=== PATIENT | male | born 1955 | race Caucasian/White ===

== ENCOUNTER → 2021-01-29 15:12 | Outpatient (CLI) | payer OTHER, SELFPAY ==
--- NOTE | 2021-01-29 15:15 | DI.MRI.S_ITS ---
PROCEDURE: MR LUMBAR SPINE WO CON INDICATIONS: Spinal stenosis, lumbar region with neurogenic cla TECHNIQUE: Noncontrast sagittal T1 spin echo and T2 fast echo, sagittal STIR, axial T1 and T2 fast spin echo through the lumbar spine. In cases with scoliosis, additional coronal T2 fast spin echo may be performed. COMPARISON: [facility] [place], CR, XR LUMBAR SPINE WITH OLBIQUES PLUS FLEXION EXTENSION, 12/25/2020, 8:53. FINDINGS: Image quality: This examination is limited by involuntary motion artifact. Alignment and Curvature: There is grade 1 L5-S1 anterolisthesis, with associated L5 pars defects. Bone Marrow: Marrow is of normal overall signal. No acute vertebral body compression fractures. Spinal Cord: Conus medullaris terminates at the T12-L1 level. Visualized cord demonstrates normal signal and size. Paraspinous Soft Tissues: No paravertebral masses. T11-T12: Moderate loss of disc height is seen. Prominent bridging anterior osteophytes are seen. Moderate generalized disc bulge is seen. Moderate bilateral neural foraminal narrowing is seen. Mild central canal narrowing is seen. T12-L1: The disc height and disc signal are relatively well preserved. Moderate disc bulge is seen, which is eccentric to the left. Mild to moderate facet hypertrophy is seen. There is moderate right-sided and no significant left-sided neural foraminal narrowing seen. No central canal narrowing is seen. L1-L2: The disc height and disk signal are well-preserved. Bridging endplate osteophytes are seen. Mild to moderate disc bulge is seen. Mild to moderate facet hypertrophy is seen at this level. Moderate bilateral neural foraminal narrowing is seen. Mild to moderate central canal narrowing is seen. L2-L3: The disc height and disc signal are relatively well preserved. Moderate disc bulge is seen, which is eccentric to the right. Mild to moderate facet hypertrophy is seen. There is at least moderate left-sided and moderate right-sided neural foraminal narrowing seen. Moderate central canal narrowing is seen. L3-L4: The disc height and disc signal are relatively well preserved. Moderate disc bulge is seen, with a central disc protrusion. Mild to moderate facet hypertrophy can be seen. There is at least moderate bilateral neural foraminal narrowing seen, left worse than right. There is a degree of compression seen upon the exiting nerve roots. Moderate central canal narrowing is seen. L4-L5: Moderate loss of disc height is seen. Loss of disc signal is seen. Moderate disc bulge is seen, with a central/right mild disc extrusion, with inferior migration of the disc material. Moderate facet joint hypertrophy is seen. There is moderate to severe bilateral neural foraminal narrowing seen, right worse than left. There is a degree of compression seen upon the exiting nerve roots. Mild central canal narrowing is seen. L5-S1: Kazr-nl-ignhxzgi loss of disc height and disc signal can be seen. Moderate disc bulge is seen, with disc uncovering. Moderate facet hypertrophy is seen. There is severe bilateral neural foraminal narrowing seen. There is a degree of compression seen upon the exiting nerve roots. Mild central canal narrowing is seen. IMPRESSION: Lumbar spine degenerative changes are seen, which are most prominent inferiorly and overall worst at the L5-S1 level, where there is grade 1 anterolisthesis, with associated bilateral pars defects. Severe bilateral neural foraminal narrowing can be seen at this level, with associated exiting L5 nerve root compression. Dictated by: Tenzin Heredia M.D. on 01/29/2021 at 15:25 Approved by: Tenzin Heredia M.D. on 01/29/2021 at 15:42
== END ==
PROVIDERS: Referring Provider Internal Medicine Gastroenterology; Visit Provider Internal Medicine Gastroenterology
DX: M48.062 Spinal stenosis, lumbar region with neurogenic claudication (principal); M47.816 Spondylosis without myelopathy or radiculopathy, lumbar region; M47.817 Spondylosis without myelopathy or radiculopathy, lumbosacral region; M48.07 Spinal stenosis, lumbosacral region; M43.17 Spondylolisthesis, lumbosacral region
CPT/HCPCS: 72148

== ENCOUNTER → 2022-05-22 09:21 | Outpatient (CLI) | payer MEDICARE, OTHER, SELFPAY ==
[2022-05-22 10:50] LABS: COVID19 -Nasal RAPID Negative (Negative)
== END ==
PROVIDERS: PCP Family Medicine; Visit Provider Surgery
DX: Z20.822 Contact with and (suspected) exposure to COVID-19 (principal); Z01.812 Encounter for preprocedural laboratory examination
CPT/HCPCS: 87635; C9803

== ENCOUNTER 2022-05-23 11:32 | Day surgery (SDC) | payer MEDICARE, OTHER, SELFPAY ==
[2022-05-23] VITALS (7 sets, daily range): BP systolic 72–136; BP diastolic 48–73; PULSE 61–83; RESP 16–23; TEMP 36.4–36.6; O2SAT 92–97; BMI 36.5
--- NOTE | 2022-05-23 | PATH_ITS ---
[facility] Accession Number: [id number] No. of containers..05 Tissue . 01 Material submitted: . PART A: colon - ASCENDING COLON POLYP X2 PART B: colon - TRANSVERSE COLON POLYP PART C: colon - DESCENDING COLON POLYP PART D: sigmoid colon - SIGMOID COLON POLYP PART E: rectum - RECTAL POLYP . 01 Diagnosis: A. Ascending Colon, Polyp x2, Biopsy: Tubular adenoma in 2 of 3 fragments. . B. Transverse Colon, Polyp, Biopsy: Tubular adenoma. . C. Descending Colon, Polyp, Biopsy: Tubular adenoma. . D. Sigmoid Colon, Polyp, Biopsy: Tubular adenomas. . E. Rectum, Polyp, Biopsy: Hyperplastic polyp. [facility] 05/28/2022 1124 Local . 01 Electronically signed: . Aria Solorio MD, Pathologist NPI- [id number] . 01 Gross description: . Part A: ASCENDING COLON POLYP X2: Received in formalin are 3 fragment(s) of chicas, soft tissue measuring 0.5 x 0.5 x 0.3 cm to 0.8 x 0.5 x 0.3 cm submitted entirely in 1 cassette(s) Part B: TRANSVERSE COLON POLYP: Received in formalin is 1 fragment(s) of chicas, soft tissue measuring 0.8 x 0.4 x 0.3 cm submitted entirely in 1 cassette(s) Part C: DESCENDING COLON POLYP: Received in formalin are 2 fragment(s) of chicas, soft tissue measuring 0.2 x 0.2 x 0.1 cm to 0.6 x 0.5 x 0.3 cm submitted entirely in 1 cassette(s) Part D: SIGMOID COLON POLYP: Received in formalin is 2 fragment(s) of chicas, soft tissue measuring 0.5 x 0.5 x 0.3 cm to 0.6 x 0.5 x 0.4 cm submitted entirely in 1 cassette(s) Part E: RECTAL POLYP: Received in formalin is 1 fragment(s) of chicas, soft tissue measuring 0.5 x 0.4 x 0.3 cm submitted entirely in 1 cassette(s) /PETER 05/24/2022 2352 Local . 01 Pathologist provided ICD-10: D12.2, D12.3, D12.4, D12.5, K62.1 . 01 CPT . 682095, 682527, 382049, 389252, 862833 Specimen Comment: A courtesy copy of this report has been sent to [phone] Performed at: 01 [facility] [address] [place] [address], [place], [place] [id number] MD Zhao Cartagena MD Phone: [phone]
[2022-05-23] MEDS: LACTATED RINGERS 1,000 ML 42 ML IV (11:51)
--- NOTE | 2022-05-23 12:27 | PM.HP.1 ---
History of Present Illness History of Present Illness Date Patient Seen: 05/23/22 Time Patient Seen: 12:27 Chief complaint: SDC Narrative: Mitch is a 67-year-old man who is here for colonoscopy. He had 1 here about 11 years ago that was clean. He has no known family history of colon cancer. Patient History Family & Social History Social History: household members spouse Tobacco & Substance use: Tobacco type cigarettes Smoking Status Never smoker alcohol intake current alcohol intake frequency 0-2 drinks per day Substance Use Type does not use Meds Home Medications and Allergies Home Medications Medication Instructions Recorded Confirmed Type atorvastatin 20 mg tablet 20 mg PO DAILY 05/23/22 05/23/22 History lisinopril 20 20 - 25 tab PO DAILY DM 05/23/22 05/23/22 History mg-hydrochlorothiazide 25 mg tablet metformin 500 mg tablet 500 mg PO 3XD 05/23/22 05/23/22 History sildenafil 25 mg tablet 25 mg PO DAILY PRN Sexual Activity 05/23/22 05/23/22 History tamsulosin 0.4 mg capsule 0.4 mg PO DAILY 05/23/22 05/23/22 History verapamil 240 mg tablet,extended 240 mg PO DAILY 05/23/22 05/23/22 History release zolpidem 10 mg tablet 10 mg PO 3XD 05/23/22 05/23/22 History Allergies Allergy/AdvReac Type Severity Reaction Status Date / Time No Known Drug Allergies Allergy Verified 05/23/22 11:53 Exam Vital Signs (past 8 hours): - 05/23/22 12:02 Temperature 97.5 F L Pulse Rate 83 Respiratory Rate 17 Blood Pressure 136/73 Pulse Oximetry 97 Oxygen Delivery Method Room Air Oxygen Delivery Method Room Air Const General: No acute distress Assessment & Plan Assessment and plan (1) Colon cancer screening: Status: Acute Plan Risks and benefits of colonoscopy reviewed and he would like to proceed. Time Spent With Patient Critical Care time: I spent a total of [] minutes of critical care time on this patient's care today; this time is exclusive of procedural time.
--- NOTE | 2022-05-23 14:02 | PM.OP.COLON ---
Operative Date/Time/Diagnoses Date of procedure: 05/23/22 Time of procedure: 14:02 Pre-op diagnosis: Colon cancer screening Post-op diagnosis: same Procedure & Clinicians Study performed: Colonoscopy Same procedure as scheduled: Yes Surgeon: Mitch Hanna Procedure Notes Procedure in detail: Surgeon: Mitch Hanna MD Anesthesia: Dr. Chowdhury Procedure: The patient was brought to the endoscopy suite, placed in left lateral decubitus position. The patient was connected to monitoring devices. A time-out was performed. Sedation was administered. Once the patient was adequately sedated, a digital rectal exam was performed and was normal. The scope was then inserted and advanced to the cecum where the appendiceal orifice was identified and photographed. The scope was then slowly withdrawn over greater than 6 minutes. The mucosa was thoroughly inspected. There were 3 polyps in the ascending colon all less than 1 cm removed with cold snare and sent together. There was 1 5 mm polyp in the transverse colon removed with a cold snare. There was 1 5 mm polyp in the descending colon removed with a cold snare. There was 1 5 mm polyp in the sigmoid colon removed with a cold snare. There was a 3 mm polyp in the rectum removed with cold snare. The scope was retroflexed in the rectum. No other abnormalities were seen. The scope was straightened and removed. The patient was awakened and brought to recovery. Scope withdrawal time: 20 minutes Sedation time: 27 minutes EBL: 5 mL Findings: 3 polyps in the ascending colon, 1 polyp in the transverse colon, 1 polyp in the descending colon, 1 polyp in the sigmoid colon and 1 rectal polyp all less than 1 cm Post-procedure Disposition: PACU
== END 2022-05-23 14:54 | disposition home or self-care (01) ==
PROVIDERS: PCP Family Medicine; Referring Provider Surgery; Visit Provider Surgery
PROC: 0DJD8ZZ Inspection of Lower Intestinal Tract, Via Natural or Artificial Opening Endoscopic (ICD-10-PCS; CPT 45378; principal; 2022-05-23 11:45)
DX: Z12.11 Encounter for screening for malignant neoplasm of colon (principal); D12.2 Benign neoplasm of ascending colon; D12.3 Benign neoplasm of transverse colon; D12.4 Benign neoplasm of descending colon; D12.5 Benign neoplasm of sigmoid colon; K62.1 Rectal polyp
CPT/HCPCS: 45385; J2704; J3010

== ENCOUNTER → 2022-05-27 09:39 | Outpatient (CLI) | payer MEDICARE, OTHER, SELFPAY ==
--- NOTE | 2022-05-27 | DI.US.S_ITS ---
PROCEDURE: US ABD AORTA ANEURYSM SCREEN INDICATIONS: SCREENING FOR CARDIOVASCULAR DISORDER TECHNIQUE: Real-time scanning was performed of the aorta and proximal common iliac arteries, with image documentation. COMPARISON: None. FINDINGS: Aorta: Abdominal aorta is normal in caliber throughout its length. Proximal aorta measures 1.3 cm in AP diameter. Mid aorta measures 1.1 cm and distal aorta measures 1.0 cm. No visible periaortic fluid. Iliacs: Proximal common iliac arteries are normal in caliber. Each measures 1.0 cm in greatest diameter. IMPRESSION: 1. No evidence of aortic or proximal common iliac artery aneurysm. Dictated by: Nina Patel M.D. on 05/27/2022 at 10:01 Approved by: Nina Patel M.D. on 05/27/2022 at 10:02
== END ==
PROVIDERS: PCP Family Medicine; Referring Provider Family Medicine; Visit Provider Family Medicine
DX: Z13.6 Encounter for screening for cardiovascular disorders (principal)
CPT/HCPCS: 76706

== ENCOUNTER 2022-06-14 16:27 | Emergency (ER) | payer MEDICARE, OTHER, SELFPAY ==
[2022-06-14] VITALS (10 sets, daily range): BP systolic 124–169; BP diastolic 64–93; PULSE 77–94; RESP 12–24; TEMP 37; O2SAT 91–96; BMI 38.7
--- NOTE | 2022-06-14 16:46 | DI.RAD.S_ITS ---
PROCEDURE: XR CHEST 1V INDICATIONS: chest pain TECHNIQUE: One view of the chest was acquired. COMPARISON: [facility], , CHEST 2 VIEW, 06/30/2008, 0:38. FINDINGS: Surgical changes and devices: None. Lungs and pleura: Lungs are clear. No pleural effusions or pneumothorax. Mediastinum: Mediastinal contours appear normal. Heart size is is enlarged. Bones and chest wall: No suspicious bony lesions. Overlying soft tissues appear unremarkable. IMPRESSION: No acute cardiopulmonary pathology. Dictated by: Duane Cai M.D. on 06/14/2022 at 17:04 Approved by: Duane Cai M.D. on 06/14/2022 at 17:04
--- NOTE | 2022-06-14 16:46 | PC.NURSE ---
patient reports he has been more tired than normal
--- NOTE | 2022-06-14 16:47 | DI.CT.S_ITS ---
PROCEDURE: CT HEAD/BRAIN WO CON INDICATIONS: altered mental status, ETOH TECHNIQUE: Noncontrast 4.5 mm thick angled axial sections acquired from the foramen magnum to the vertex, with coronal and sagittal reformats. For radiation dose reduction, the following was used: automated exposure control, adjustment of mA and/or kV according to patient size. COMPARISON: None. FINDINGS: Image quality: Excellent. CSF spaces: Basal cisterns are patent. No extra-axial fluid collections. The ventricles are symmetric in size and shape. Brain: No intracranial bleeds or masses. There is cerebral volume loss for age, with resultant ventricular and sulcal prominence. There are periventricular and deep white matter chronic small vessel ischemic changes. There is intracranial internal carotid artery atherosclerosis. Skull and face: Calvarium and visualized facial bones appear intact, without suspicious lesions. Sinuses: Visualized sinuses and mastoids are clear. IMPRESSION: 1. No CT evidence of acute intracranial abnormalities. 2. Age related volume loss and mild white matter chronic small vessel ischemic changes. Dictated by: Duane Cai M.D. on 06/14/2022 at 17:04 Approved by: Duane Cai M.D. on 06/14/2022 at 17:05
--- NOTE | 2022-06-14 16:58 | PC.NURSE ---
Patient reports patient normally drinks about 5-6 drinks of vodka a day throughout the whole day. Typically starts in the morning. Patient has had some word finding and repetition over the last couple days. Patient has also appeared to have some swallowing difficulties with first few drinks over the last couple days which is new. Patient has been more tired than normal.
[2022-06-14 17:02] LABS: Add Manual Diff / Slide Review NO; Basophils Absolute Auto 100 /uL (0-100); Basophils Percent Auto 1.1 % (0-2); Eosinophils Absolute Auto 400 /uL (0-450); Eosinophils Percent Auto 4.3 % (2-4); Hematocrit 38.7 % (41-53); INR 1.1 (0.9-1.3); Lymphocytes Absolute Auto 2800 /uL (1100-4500); Lymphocytes Percent Auto 31.3 % (25-40); Mean Corpuscular HGB Conc 33.5 % (30-36); Mean Corpuscular Hemoglobin 33.9 PG (26-34); Mean Corpuscular Volume 101.1 fL (80-100); Monocytes Absolute Auto 800 /uL (0-900); Monocytes Percent Auto 9.2 % (3-14); Neutrophils Absolute Auto 4900 /uL (1500-7000); Neutrophils Percent Auto 54.1 % (50-75); Platelet Count 232 X10^3/uL (150-400); Prothrombin Time 12.9 SECONDS (10.1-12.7); Red Blood Cell Count 3.83 X10^6/uL (4.5-5.9); Red Cell Distribution Width 14.4 % (11.6-14.8)
[2022-06-14 17:05] LABS: Ethanol (ETOH) 287 mg/dL; PTT Partial Thromboplastin Tim 37 SECONDS (26-36)
[2022-06-14 17:06] LABS: Alanine Aminotransferase 74 IU/L (<50); Albumin 4.6 g/dL (3.5-5.0); Albumin Globulin Ratio 1.3 (1.0-2.8); Alkaline Phosphatase 78 U/L (38-126); Aspartate Aminotransferase 136 IU/L (17-59); BUN Creatinine Ratio 10.4 (6-22); Bilirubin Total 0.9 mg/dL (0.2-1.3); Blood Urea Nitrogen 12 mg/dL (9-20); Calcium 9.1 mg/dL (8.4-10.2); Carbon Dioxide 23 mmol/L (22-32); Chloride 94 mmol/L (98-107); Creatine Kinase 324 U/L (55-170); Estimated Glomerular Filt Rate > 60 mL/min (>60); Globulin 3.6 g/dL (1.7-4.1); Glucose 184 mg/dL (80-110); HEMOLYSIS < 15 (0-50); Lipase 244 U/L (23-300); Magnesium 1.6 mg/dL (1.6-2.3); Potassium 3.7 mmol/L (3.4-5.1); Sodium 138 mmol/L (137-145); Total Protein 8.2 g/dL (6.3-8.2)
[2022-06-14 17:17] LABS: Troponin I < 0.012 ng/mL (0.01-0.034)
[2022-06-14 17:21] LABS: CKMB % Relative Index 0.8 % (1.5-5.0); Creatine Kinase MB 2.49 ng/mL (<2.37)
--- NOTE | 2022-06-14 17:22 | DI.CT.S_ITS ---
PROCEDURE: CT ANGIO HEAD AND NECK INDICATIONS: altered per family TECHNIQUE: Noncontrast images were performed earlier in the day and not repeated. After the administration of intravenous contrast, 1 mm thick sections acquired from the aortic arch through the [place]. Post-contrast 4.5 mm thick sections then re-acquired from the foramen magnum to the vertex. 3-dimensional xygszlm-ooexxxqsr-ygfmvdiwmj (MIP) and/or volume rendering reformats were acquired of the central intracranial vasculature and neck separately. For radiation dose reduction, the following was used: automated exposure control, adjustment of mA and/or kV according to patient size. COMPARISON: [facility], CT, CT HEAD/BRAIN WO CON, 06/14/2022, 16:52. FINDINGS: Image quality: Excellent. BRAIN: CSF spaces: Ventricles are normal in size and shape. Basal cisterns are patent. No extra-axial fluid collections. Brain: No midline shift. No intracranial bleeds or masses. Pillai-white matter interface appears intact. Skull and face: Calvarium and facial bones appear intact, without suspicious lesions. Orbits appear normal. Sinuses: Sinuses and mastoids are clear. HEAD CT ANGIOGRAPHY: Anterior circulation: Intracranial internal carotid arteries are normal in size and flow. The flow within the paired anterior cerebral arteries is normal and symmetric. The flow within the middle cerebral arteries is normal and symmetric. The anterior communicating artery is seen. No aneurysms are seen. Posterior circulation: The left V4 segment is within normal limits. The right V4 segment largely terminates in the right posterior inferior cerebellar artery. There is a normal appearing basilar artery. Flow within the posterior cerebral arteries is normal and symmetric. No aneurysms are seen. NECK CT ANGIOGRAPHY: Carotid system: The great vessels demonstrate a conventional anatomy as they arise from the aortic arch. The origins of the common carotid arteries appear patent. The common carotid arteries demonstrate normal caliber and courses. The bifurcation regions demonstrate atherosclerotic calcification, yet without a hemodynamically significant stenosis. The more distal internal carotid arteries demonstrate normal caliber, yet they are tortuous. Posterior circulation: The origins of the vertebral arteries both appear widely patent. The more superior extracranial portions of both vertebral arteries also demonstrate normal courses and calibers. The left vertebral artery is dominant to the right. Soft tissues: Visualized neck soft tissues demonstrate no suspicious abnormalities. The esophagus is abnormal and patulous, with a thickened wall. There is abnormal fluid density material seen within the esophagus. Bones: No suspicious bony lesions. Visualized cervical spine appears normally aligned. Moderate cervical spine degenerative change can be seen. IMPRESSION: No significant intracranial arterial abnormality is seen. Within the arteries of the neck, no hemodynamically significant stenosis can be seen. If there is strong clinical suspicion for an acute stroke, please consider a brain MRI for further evaluation, as it is more sensitive (assuming that there is no contraindication to MRI). The esophagus is abnormal, with a patulous appearance and a thickened wall and apparent refluxed material. Please correlate with known patient history. Additional findings: Tortuous internal carotid arteries Moderate cervical spine degenerative change Any quantitative measurements of stenosis were performed using NASCET criteria. Dictated by: Tenzin Heredia M.D. on 06/14/2022 at 17:20 Approved by: Tenzin Heredia M.D. on 06/14/2022 at 17:23
[2022-06-14 17:49] LABS: Appearance Urine UA CLEAR; Bilirubin Urine UA NEGATIVE (NEGATIVE); Color Urine UA YELLOW; Glucose Urine UA 3+ g/dL (Negative); Ketones Urine UA NEGATIVE (NEGATIVE); Leukocyte Esterase Urine UA NEGATIVE (NEGATIVE); Nitrite Urine UA NEGATIVE (Negative); Occult Blood Urine UA NEGATIVE (Negative); Protein Urine UA NEGATIVE (Negative); Specific Gravity Urine UA <=1.005 (1.000-1.035); Urobilinogen Urine UA 0.2 E.U./dL (0.2)
[2022-06-14 17:59] LABS: UR Morphine/Opiate cutoff 300 Negative (Negative); Ur Creatinine Normal (Normal); Ur Specific Gravity Normal (Normal); Urine Amphetamines Negative (Negative); Urine Barbiturates Negative (Negative); Urine Benzodiazepines Negative (Negative); Urine Cocaine Negative (Negative); Urine MDMA Negative (Negative); Urine Methadone Negative (Negative); Urine Methamphetamines Negative (Negative); Urine Oxycodone Negative (Negative); Urine Phencyclidine Negative (Negative); Urine Tetrahydrocannabinol Negative (Negative); Urine Tricyclic Antidepressant Negative (Negative); Urine pH Normal (Normal)
[2022-06-14 18:03] LABS: Amorphous Sediment Urine 1+; Bacteria Urine None Seen; Culture Indicated Urine Cult Not Indicated; RBC Urine None Seen (0-5/HPF); Squamous Epithelial Cell Urine 0-1 /HPF (0-5/HPF); WBC Urine 0-1/HPF (0-5/HPF)
--- NOTE | 2022-06-14 19:21 | ED_ITS ---
HPI - Altered Mental Status General Chief Complaint: Altered Mental Status Stated Complaint: confused / found down Time Seen by Provider: 06/14/22 16:49 Source: EMS Mode of arrival: EMS History of Present Illness HPI narrative: Patient is a 67-year-old male history of hypertension hyperlipidemia alcohol abuse diabetes presenting today after syncopal episode. He reports that he was sleeping on the couch she stood up and passed out. He is unsure how long he laid there how long he passed out for but this does happened to him on occasion when he stands up too quickly. was outside came in and found him on the floor and just extremely weak unable to get up off the ground by himself. This is very out of the norm for him. He was diffusely weak not unilateral she said that his speech was slow but clear and making sense. EMS arrived Related Data Home Medications Medication Instructions Recorded Confirmed atorvastatin 20 mg tablet 20 mg PO DAILY 05/23/22 05/23/22 lisinopril 20 20 - 25 tab PO DAILY DM 05/23/22 05/23/22 mg-hydrochlorothiazide 25 mg tablet metformin 500 mg tablet 500 mg PO 3XD 05/23/22 05/23/22 sildenafil 25 mg tablet 25 mg PO DAILY PRN Sexual Activity 05/23/22 05/23/22 tamsulosin 0.4 mg capsule 0.4 mg PO DAILY 05/23/22 05/23/22 verapamil 240 mg tablet,extended 240 mg PO DAILY 05/23/22 05/23/22 release zolpidem 10 mg tablet 10 mg PO 3XD 05/23/22 05/23/22 Allergies Allergy/AdvReac Type Severity Reaction Status Date / Time No Known Drug Allergies Allergy Verified 06/14/22 16:41 Review of Systems Review of Systems ROS Unobtainable: All systems reviewed & are unremarkable except as noted in HPI and below Patient History Social History household members: spouse Smoking Status: Former smoker alcohol intake: current Smoking Status: Former smoker alcohol intake frequency: 0-2 drinks per day Alcohol type: hard liquor Substance Use Type: does not use Exam Initial Vital Signs Initial Vital Signs: Vital Signs Temperature 98.6 F 06/14/22 16:31 Pulse Rate 81 06/14/22 16:31 Respiratory Rate 20 02/10/23 16:31 Blood Pressure 169/93 H 06/14/22 16:31 Pulse Oximetry 96 06/14/22 16:31 Oxygen Delivery Method 06/14/22 16:31 GENERAL: Alert pleasant 67-year-old male and in no acute distress. HEENT: Head atraumatic,EOMI, pupils reactive, face symmetric, moist mucous membranes CARDIOVASCULAR: Regular rate and rhythm without murmurs, rubs or gallops. RESPIRATORY: Breath sounds equal bilaterally, no wheezes rales or rhonchi. ABDOMEN: Soft, nontender. Normoactive bowel sounds all 4 quadrants. No guarding or rebound. EXTREMITIES: Normal range of motion, no clubbing or edema. Neurovascularly intact NEUROLOGICAL: Alert and oriented x4.Normal gait and speech. Cranial nerves II through XII grossly intact. Good [id number], good [id number], strength equal bilaterally, no dysarthria or aphasia, sensation in tact to soft touch bilaterally, no visual changes, no facial droop SKIN: Warm, dry, no laceration, no petechiae, no rashes or lesions. Scores NIH Stroke Scale Level of Conciousness: Alert, keenly responsive Ask month/age: Answers both questions correctly. Open/close eyes, close hand: Performs both tasks correctly Best gaze horizontal: Normal Visual islas: No visual loss Facial palsy: Normal symetrical movement Left arm drift: No drift for full 10 sec Right arm drift: No drift for full 10 sec Left leg drift: No drift for full 5 sec Right leg drift: No drift for full 5 sec Limb ataxia: Absent Sensory on face/arms/legs: Normal, no sensory loss Best language: No aphasia, normal Dysarthria: Normal Extinction or inattention: No abnormality Total NIH Stroke scale score: 0 Course Orders Ordered: ED Orders 06/14/22 16:35 Complete Blood Count AUTO DIFF Stat Comprehensive Metabolic Panel Stat Ethanol (ETOH) Stat Lipase Stat Magnesium Stat Partial Thromboplastin Time Stat Prothrombin Time INR Stat Troponin & CK Cardiac Panel Stat 06/14/22 16:46 XR chest 1V Stat 06/14/22 16:47 CT head/brain wo con Stat 06/14/22 17:22 CT angio head and neck Stat 06/14/22 17:46 Urinalysis and Microscopic Stat Urine Drug Screen, Rapid Stat 06/14/22 17:59 EKG-12 Lead Stat Discontinued Medications Aspirin (Aspirin 81 Mg Chew Tab) 324 mg PO NOW ONE Stop: 06/14/22 16:47 Last Admin: 06/14/22 18:15 Dose: Not Given Documented By: [facility] Vital Signs Vital signs: Vital Signs - 8 hr 06/14/22 16:31 06/14/22 16:32 06/14/22 17:04 Temperature 98.6 F Pulse Rate 81 83 81 Respiratory Rate 20 17 Blood Pressure 169/93 H Pulse Oximetry 96 96 95 Oxygen Delivery Method Room Air 06/14/22 17:30 06/14/22 18:00 06/14/22 18:16 Temperature Pulse Rate 94 H 79 Respiratory Rate Blood Pressure 126/75 Pulse Oximetry 95 Oxygen Delivery Method 06/14/22 18:16 06/14/22 18:30 06/14/22 18:30 Temperature Pulse Rate 82 80 Respiratory Rate 24 Blood Pressure 127/76 Pulse Oximetry 94 94 Oxygen Delivery Method 06/14/22 19:00 06/14/22 19:00 06/14/22 19:30 Temperature Pulse Rate 79 Respiratory Rate 22 Blood Pressure 124/75 130/77 Pulse Oximetry 91 Oxygen Delivery Method 06/14/22 19:30 06/14/22 20:00 06/14/22 20:00 Temperature Pulse Rate 77 79 Respiratory Rate 24 12 Blood Pressure 128/64 Pulse Oximetry 95 93 Oxygen Delivery Method MDM - Altered Mental Status Lab Data 06/14/22 16:35 06/14/22 16:35 Labs: Lab Results 06/14/22 06/14/22 06/14/22 Range/Units 16:35 16:35 16:35 WBC 9.0 (4.5-11.0) X10^3/uL RBC 3.83 L (4.5-5.9) X10^6/uL Hgb 13.0 L (13.5-17.5) g/dL Hct 38.7 L (41-53) % MCV 101.1 H (80-100) fL MCH 33.9 (26-34) PG MCHC 33.5 (30-36) % RDW 14.4 (11.6-14.8) % Plt Count 232 (150-400) X10^3/uL Neut % (Auto) 54.1 (50-75) % Lymph % (Auto) 31.3 (25-40) % [place] % (Auto) 9.2 (3-14) % Eos % (Auto) 4.3 H (2-4) % Baso % (Auto) 1.1 (0-2) % Neut # (Auto) 4900 (7729-5725) /uL Lymph # (Auto) 2800 (4531-3781) /uL [place] # (Auto) 800 (0-900) /uL Eos # (Auto) 400 (0-450) /uL Baso # (Auto) 100 (0-100) /uL PT 12.9 H (10.1-12.7) SECONDS INR 1.1 (0.9-1.3) APTT 37 H (26-36) SECONDS Sodium 138 (137-145) mmol/L Potassium 3.7 (3.4-5.1) mmol/L Chloride 94 L (98-107) mmol/L Carbon Dioxide 23 (22-32) mmol/L BUN 12 (9-20) mg/dL Creatinine 1.15 (0.66-1.25) mg/dL Estimated GFR > 60 (>60) mL/min BUN/Creatinine Ratio 10.4 (6-22) Glucose 184 H (80-110) mg/dL Calcium 9.1 (8.4-10.2) mg/dL Magnesium 1.6 (1.6-2.3) mg/dL Total Bilirubin 0.9 (0.2-1.3) mg/dL AST 136 H (17-59) IU/L ALT 74 H (<50) IU/L Alkaline Phosphatase 78 (38-126) U/L Total Creatine Kinase 324 H (55-170) U/L CK-MB (CK-2) 2.49 H (<2.37) ng/mL CK-MB (CK-2) Rel Index 0.8 L (1.5-5.0) % Troponin I < 0.012 (0.01-0.034) ng/mL Total Protein 8.2 (6.3-8.2) g/dL Albumin 4.6 (3.5-5.0) g/dL Globulin 3.6 (1.7-4.1) g/dL Albumin/Globulin Ratio 1.3 (1.0-2.8) Lipase 244 (23-300) U/L Urine Color Urine Appearance Urine pH (4.5-8.0) Ur Specific [place] (1.000-1.035) Urine Protein (Negative) Urine Glucose (UA) (Negative) g/dL Urine Ketones (NEGATIVE) Urine Occult Blood (Negative) Urine Nitrate (Negative) Urine Bilirubin (NEGATIVE) Urine Urobilinogen (0.2) E.U./dL Ur Leukocyte Esterase (NEGATIVE) Urine RBC (0-5/HPF) Urine WBC (0-5/HPF) Ur Squamous Epith Cells (0-5/HPF) Amorphous Sediment Urine Bacteria (None) Ur Culture Indicated? U Opiates 300ng/mL cut (Negative) Ur Oxycodone Screen (Negative) Urine Methadone Screen (Negative) Ur Barbiturates Screen (Negative) U Tricyclic Antidepress (Negative) Ur Phencyclidine Scrn (Negative) Ur Amphetamines Screen (Negative) U Methamphetamines Scrn (Negative) Ur MDMA Scrn (Ecstasy) (Negative) U Benzodiazepines Scrn (Negative) Urine Cocaine Screen (Negative) U Marijuana (THC) Screen (Negative) Ethyl Alcohol ( - 10) mg/dL 06/14/22 06/14/22 06/14/22 Range/Units 16:35 17:46 17:46 WBC (4.5-11.0) X10^3/uL RBC (4.5-5.9) X10^6/uL Hgb (13.5-17.5) g/dL Hct (41-53) % MCV (80-100) fL MCH (26-34) PG MCHC (30-36) % RDW (11.6-14.8) % Plt Count (150-400) X10^3/uL Neut % (Auto) (50-75) % Lymph % (Auto) (25-40) % [place] % (Auto) (3-14) % Eos % (Auto) (2-4) % Baso % (Auto) (0-2) % Neut # (Auto) (5867-8526) /uL Lymph # (Auto) (4545-2958) /uL [place] # (Auto) (0-900) /uL Eos # (Auto) (0-450) /uL Baso # (Auto) (0-100) /uL PT (10.1-12.7) SECONDS INR (0.9-1.3) APTT (26-36) SECONDS Sodium (137-145) mmol/L Potassium (3.4-5.1) mmol/L Chloride (98-107) mmol/L Carbon Dioxide (22-32) mmol/L BUN (9-20) mg/dL Creatinine (0.66-1.25) mg/dL Estimated GFR (>60) mL/min BUN/Creatinine Ratio (6-22) Glucose (80-110) mg/dL Calcium (8.4-10.2) mg/dL Magnesium (1.6-2.3) mg/dL Total Bilirubin (0.2-1.3) mg/dL AST (17-59) IU/L ALT (<50) IU/L Alkaline Phosphatase (38-126) U/L Total Creatine Kinase (55-170) U/L CK-MB (CK-2) (<2.37) ng/mL CK-MB (CK-2) Rel Index (1.5-5.0) % Troponin I (0.01-0.034) ng/mL Total Protein (6.3-8.2) g/dL Albumin (3.5-5.0) g/dL Globulin (1.7-4.1) g/dL Albumin/Globulin Ratio (1.0-2.8) Lipase (23-300) U/L Urine Color Yellow Urine Appearance Clear Urine pH 6.0 (4.5-8.0) Ur Specific [place] <=1.005 (1.000-1.035) Urine Protein Negative (Negative) Urine Glucose (UA) 3+ H (Negative) g/dL Urine Ketones Negative (NEGATIVE) Urine Occult Blood Negative (Negative) Urine Nitrate Negative (Negative) Urine Bilirubin Negative (NEGATIVE) Urine Urobilinogen 0.2 (0.2) E.U./dL Ur Leukocyte Esterase Negative (NEGATIVE) Urine RBC None seen (0-5/HPF) Urine WBC 0-1/hpf (0-5/HPF) Ur Squamous Epith Cells 0-1 /hpf (0-5/HPF) Amorphous Sediment 1+ Urine Bacteria None seen (None) Ur Culture Indicated? Cult not indicated U Opiates 300ng/mL cut Negative (Negative) Ur Oxycodone Screen Negative (Negative) Urine Methadone Screen Negative (Negative) Ur Barbiturates Screen Negative (Negative) U Tricyclic Antidepress Negative (Negative) Ur Phencyclidine Scrn Negative (Negative) Ur Amphetamines Screen Negative (Negative) U Methamphetamines Scrn Negative (Negative) Ur MDMA Scrn (Ecstasy) Negative (Negative) U Benzodiazepines Scrn Negative (Negative) Urine Cocaine Screen Negative (Negative) U Marijuana (THC) Screen Negative (Negative) Ethyl Alcohol 287 H ( - 10) mg/dL Urine Dip Bedside Urine Glucose 250 mg/dl Bedside Urine Bilirubin - Negative Bedside Urine Ketone - Negative Urine Specific [place] 1.015 Bedside Urine Occult Blood - Negative Bedside Urine pH 6.0 Bedside Urine Protein - Negative Bedside Urine Urobilinogen - Negative Bedside Urine Nitrite - Negative Bedside Urine Leukocytes - Negative Esterase Imaging Data CT scan - head: Radiologist's Impression: Mitch Arthur MR#: [id number] : 1955 Acct:[id number] Age/Sex: 67 / M Date of Service: 06/14/22 Loc: ED Accession Number: [id number] ?? Procedure: CT head/brain wo con Ordering Provider: Nataly Templeton D.O. PROCEDURE:? CT HEAD/BRAIN WO CON ? INDICATIONS:? altered mental status, ETOH ? TECHNIQUE:? Noncontrast 4.5 mm thick angled axial sections acquired from the foramen magnum to the vertex, with coronal and sagittal reformats.? For radiation dose reduction, the following was used:? automated exposure control, adjustment of mA and/or kV according to patient size.? ? COMPARISON:? None. ? FINDINGS:? Image quality:? Excellent.? ? CSF spaces:? Basal cisterns are patent.? No extra-axial fluid collections.? The ventricles are symmetric in size and shape.? ? Brain:? No intracranial bleeds or masses.? There is cerebral volume loss for age, with resultant ventricular and sulcal prominence.? There are periventricular and deep white matter chronic small vessel ischemic changes.? There is intracranial internal carotid artery atherosclerosis.? ? Skull and face:? Calvarium and visualized facial bones appear intact, without suspicious lesions.? ? Sinuses:? Visualized sinuses and mastoids are clear.? ? IMPRESSION:? 1. No CT evidence of acute intracranial abnormalities. 2. Age related volume loss and mild white matter chronic small vessel ischemic changes.? ? ? Dictated by: Duane Cai M.D. on 06/14/2022 at 17:04 ? ? Approved by: Duaen Cai M.D. on 06/14/2022 at 17:05 CTA - brain/neck: Radiologist's Impression: CT Scan Report Signed Patient: Mitch Arthur MR#: [id number] : 1955 Acct:[id number] Age/Sex: 67 / M Date of Service: 06/14/22 Loc: ED Accession Number: [id number] ?? Procedure: CT angio head and neck Ordering Provider: Nataly Templeton D.O. PROCEDURE:? CT ANGIO HEAD AND NECK ? INDICATIONS:? altered per family ? TECHNIQUE:? Noncontrast images were performed earlier in the day and not repeated.? ? After the administration of intravenous contrast, 1 mm thick sections acquired from the aortic arch through the [place].? Post-contrast 4.5 mm thick sections then re- acquired from the foramen magnum to the vertex.? 3-dimensional rhsewzn-jyluibidd-htcxexrnsx (MIP) and/or volume rendering reformats were acquired of the central intracranial vasculature and neck separately. For radiation dose reduction, the following was used:? automated exposure control, adjustment of mA and/or kV according to patient size.? ? COMPARISON:? [facility], CT, CT HEAD/BRAIN WO CON, 06/14/2022, 16:52. ? FINDINGS:? Image quality:? Excellent.? ? BRAIN:? CSF spaces:? Ventricles are normal in size and shape.? Basal cisterns are patent.? No extra-axial fluid collections.? ? Brain:? No midline shift.? No intracranial bleeds or masses.? Pillai-white matter interface appears intact.? ? Skull and face:? Calvarium and facial bones appear intact, without suspicious lesions.? Orbits appear normal.? ? Sinuses:? Sinuses and mastoids are clear.? ? HEAD CT ANGIOGRAPHY:? Anterior circulation:? Intracranial internal carotid arteries are normal in size and flow.? The flow within the paired anterior cerebral arteries is normal and symmetric.? The flow within the middle cerebral arteries is normal and symmetric.? The anterior communicating artery is seen.? No aneurysms are seen.? ? Posterior circulation:? The left V4 segment is within normal limits.? The right V4 segment largely terminates in the right posterior inferior cerebellar artery.? There is a normal appearing basilar artery. Flow within the posterior cerebral arteries is normal and symmetric.? No aneurysms are seen.? ? NECK CT ANGIOGRAPHY:? Carotid system:? The great vessels demonstrate a conventional anatomy as they arise from the aortic arch.? The origins of the common carotid arteries appear patent.? The common carotid arteries demonstrate normal caliber and courses.? The bifurcation regions demonstrate atherosclerotic calcification, yet without a hemodynamically significant stenosis. The more distal internal carotid arteries demonstrate normal caliber, yet they are tortuous.? ? Posterior circulation:? The origins of the vertebral arteries both appear widely patent.? The more superior extracranial portions of both vertebral arteries also demonstrate normal courses and calibers.? The left vertebral artery is dominant to the right. ? Soft tissues:? Visualized neck soft tissues demonstrate no suspicious abnormalities.? The esophagus is abnormal and patulous, with a thickened wall.? There is abnormal fluid density material seen within the esophagus. ? Bones:? No suspicious bony lesions.? Visualized cervical spine appears normally aligned.? Moderate cervical spine degenerative change can be seen. ? ? IMPRESSION:? No significant intracranial arterial abnormality is seen.? ? Within the arteries of the neck, no hemodynamically significant stenosis can be seen. ? ? If there is strong clinical suspicion for an acute stroke, please consider a brain MRI for further evaluation, as it is more sensitive (assuming that there is no contraindication to MRI). ? The esophagus is abnormal, with a patulous appearance and a thickened wall and apparent refluxed material.? Please correlate with known patient history. ? ? ? Additional findings:? Tortuous internal carotid arteries Moderate cervical spine degenerative change ? Any quantitative measurements of stenosis were performed using NASCET criteria.? ? ? Dictated by: Tenzin Heredia M.D. on 06/14/2022 at 17:20 ? Chest x-ray: Radiologist's Impression: XRay Report Signed Patient: Mitch Arthur MR#: [id number] : 1955 Acct:[id number] Age/Sex: 67 / M Date of Service: 06/14/22 Loc: ED Accession Number: [id number] ?? Procedure: XR chest 1V Ordering Provider: Nataly Templeton D.O. PROCEDURE:? XR CHEST 1V ? INDICATIONS:? chest pain ? TECHNIQUE:? One view of the chest was acquired.? ? COMPARISON:? [facility], , CHEST 2 VIEW, 06/30/2008, 0:38. ? FINDINGS:? ? Surgical changes and devices:? None.? ? Lungs and pleura:? Lungs are clear.? No pleural effusions or pneumothorax.? ? Mediastinum:? Mediastinal contours appear normal.? Heart size is is enlarged.? ? Bones and chest wall:? No suspicious bony lesions.? Overlying soft tissues appear unremarkable.? ? IMPRESSION:? No acute cardiopulmonary pathology. ? ? Dictated by: Duane Cai M.D. on 06/14/2022 at 17:04 ? ? ECG Data Interpretation: Normal sinus rhythm rate 81 HI interval 230 QRS [address] changes no priors to compare MDM Narrative Medical decision making narrative: Patient is a 67-year-old male history of diabetes hypertension hyperlipidemia presenting today after syncopal episode. He reports that he is not been taking his blood pressure medication for 2 weeks he went in for a routine colonoscopy and since then has not taken his blood pressure medication he has been checking his blood pressure in his blood pressure remains in the 130s. He is found to have an alcohol level of 287. He reports that he did not drink any more than normal today. He does report that he is previously gotten up and passed out. At this time he is no focal deficits CT angio is negative head CT is negative. He has no slurring of speech or tremors he is clinically sober uncooperative for questioning and exam. Other blood work is overall reassuring no electrolyte abnormalities or anemia. AST is mildly elevated at 136 ALT 74 with a bilirubin of 0.9. I did recommend that he possibly have a Holter monitor which can be set up with his primary care provider to make sure that he is not having any arrhythmia causing him to pass out however I suspect that his alcohol intoxication is playing role. I do agree that he should not take his blood pressure medications his blood pressure here has been stable, he was mildly hypertensive when he 1st came in however it is really been in the 120s. I would rather him not take his blood pressure medication and cause further hypotension syncopal episodes. He agrees to check his blood pressure at record and Dr. His PCP. Discharge Plan Departure Patient Disposition: Home Clinical Impression: Vasovagal episode, Alcoholic intoxication Instructions: DI for Syncope in Adults (Fainting) Activity Restrictions/Additional Instructions: *You have been diagnosed with vasovagal reaction, alcohol intoxication *What to do: At this time I do recommend that you have a Holter monitor placed by your primary care provider to monitor heart for about 3 days. Please try to get up slowly so that you do not pass out again. Stay hydrated with water Also please with hold your blood pressure medication currently her blood pressure seems to be well controlled. Please check her blood pressure 1 to 2 times a day record and toxic your PCP. *Continue to take medications as directed *Follow up with your primary care provider in 2-3 days or call [phone] *Return to ER if you should have recurrent episode of passing out, chest pain or any new, worsening or concerning symptoms Prescriptions: No Action atorvastatin 20 mg tablet 20 mg PO DAILY Label Comments: TAKE THREE TABLETS BY MOUTH ONE TIME DAILY zolpidem 10 mg tablet 10 mg PO 3XD Label Comments: TAKE ONE TABLET BY MOUTH EVERY NIGHT NEEDED tamsulosin 0.4 mg capsule 0.4 mg PO DAILY Label Comments: Take 1 capsule by mouth every evening metformin 500 mg tablet 500 mg PO 3XD Label Comments: TAKE TWO TABLETS BY MOUTH EVERY MORNING AND TAKE ONE TABLET BY MOUTH EVERY EVENING Rx Instructions: Take 1 tablet by mouth every morning. Take 2 tablets in the morning and 1 tablet in the evening for DM verapamil 240 mg tablet extended release 240 mg PO DAILY Label Comments: TAKE ONE TABLET BY MOUTH ONE TIME DAILY lisinopril-hydrochlorothiazide 20-25 mg tablet 20 - 25 tab PO DAILY Label Comments: TAKE ONE TABLET BY MOUTH ONE TIME DAILY sildenafil 25 mg Tablet 25 mg PO DAILY PRN (Reason: Sexual Activity) Referrals: Alden Boucher MD [Primary Care Provider] - Stand Alone Forms: Patient Portal/API
== END 2022-06-14 20:29 | disposition home or self-care (01) ==
PROVIDERS: Emergency Medicine; Emergency Provider Emergency Medicine; PCP Family Medicine
DX: R55 Syncope and collapse (principal); R07.9 Chest pain, unspecified; F10.129 Alcohol abuse with intoxication, unspecified; Y90.8 Blood alcohol level of 240 mg/100 ml or more
CPT/HCPCS: 36415; 70450; 70496; 70498; 71045; 80053; 80305; 80320; 81001; 81003; 82550; 82553; 83690; 83735; 84484; 85025; 85610; 85730; 93005; 99284; Q9967

== ENCOUNTER 2023-07-13 10:51 | Emergency (ER) | payer MEDICARE, OTHER, SELFPAY ==
[2023-07-13] VITALS (13 sets, daily range): BP systolic 82–131; BP diastolic 53–81; PULSE 74–85; RESP 13–34; TEMP 36.4; O2SAT 96–100; BMI 31.6
--- NOTE | 2023-07-13 11:12 | DI.CT.S_ITS ---
PROCEDURE: CT HEAD/BRAIN WO CON INDICATIONS: fall and hit head TECHNIQUE: Noncontrast 4.5 mm thick angled axial sections acquired from the foramen magnum to the vertex, with coronal and sagittal reformats. For radiation dose reduction, the following was used: automated exposure control, adjustment of mA and/or kV according to patient size. COMPARISON: [facility], CT, CT ANGIO HEAD AND NECK, 06/14/2022, 17:23. [facility], CT, CT CERVICAL SPINE WO CON, 07/13/2023, 10:26. [facility], CT, CT HEAD/BRAIN WO CON, 06/14/2022, 16:52. FINDINGS: Image quality: Mild streak artifact can be seen through the skull base. CSF spaces: Basal cisterns are patent. No extra-axial fluid collections. The ventricles are symmetric in size and shape. Brain: No intracranial bleeds or masses. There is cerebral volume loss for age, with resultant ventricular and sulcal prominence. There are periventricular and deep white matter chronic small vessel ischemic changes. There is intracranial internal carotid artery atherosclerosis. Skull and face: Minimal soft tissue hematoma can be seen posteriorly and on the right, as on series 2, image 18. No associated calvarial fracture is seen. Calvarium and visualized facial bones appear intact, without suspicious lesions. Sinuses: Visualized sinuses and mastoids are clear. IMPRESSION: Minimal scalp hematoma seen posteriorly and on the right. No displaced calvarial fracture can be seen. No acute intracranial hemorrhage is seen. No acute intracranial process is seen. Dictated by: Tenzin Heredia M.D. on 07/13/2023 at 10:41 Approved by: Tenzin Heredia M.D. on 07/13/2023 at 10:44
--- NOTE | 2023-07-13 11:12 | DI.CT.S_ITS ---
PROCEDURE: CT CERVICAL SPINE WO CON INDICATIONS: fall and hit head TECHNIQUE: Noncontrast 3 mm thick sections acquired from the skull base to the T4 level. Sagittal and coronal reformats were then constructed. For radiation dose reduction, the following was used: automated exposure control, adjustment of mA and/or kV according to patient size. COMPARISON: [facility], CT, CT ANGIO HEAD AND NECK, 06/14/2022, 17:23. [facility], CT, CT HEAD/BRAIN WO CON, 07/13/2023, 10:26. FINDINGS: Image quality: This examination is somewhat limited by quantum mottle artifact. Bones: No fractures or dislocations. Visualized superior ribs are intact. There is mild to moderate disc space narrowing seen at C4-C5. Moderate to severe disc space narrowing seen at C5-C6 and C6-C7. Post erected endplate osteophytes are seen, which are worst at the C5-C6 level. Bridging endplate osteophytes can be seen anteriorly at several levels, including from C4 through C7. Multiple levels of facet hypertrophy can be seen. Soft tissues: Prevertebral soft tissues are normal in thickness. No paravertebral hematomas. No apical pneumothoraces. Atherosclerotic calcification is noted. The esophagus is abnormal and is filled with soft tissue material. The esophagus is dilated. IMPRESSION: No displaced fracture or traumatic subluxation. Multiple levels of significant underlying degenerative change can be seen, which are worst at the C5-C6 level. There is abnormal soft tissue material seen within the dilated esophagus. While differential diagnosis includes reflux, concern is raised for underlying esophageal pathology. - Please consider follow-up upper endoscopy for further evaluation. Dictated by: Tenzin Heredia M.D. on 07/13/2023 at 10:44 Approved by: Tenzin Heredia M.D. on 07/13/2023 at 10:47
--- NOTE | 2023-07-13 11:49 | ED.FALL ---
HPI - Fall General Chief Complaint: Fall Stated Complaint: sent by hospital for special care fell back and cut head needs ct scan Time Seen by Provider: 07/13/23 11:11 Source: patient Mode of arrival: Ambulatory History of Present Illness HPI Narrative: Patient is a 68-year-old male. Not on anticoagulation who is here for evaluation of a head injury. He states this morning he had an episode where he passed out. He has had this in the past. He has had some issues with low blood pressure. About 2 months ago he was taken off of verapamil. He is still on lisinopril. He takes his lisinopril in the morning. He states this morning he had an episode where he thinks his blood pressure dropped and caused him to pass out. Prior to this he did not have a headache, vision changes, chest pain, palpitations shortness of breath. He reports no other injuries from the event. He went to the walk-in clinic he was told to come to the emergency department. Related Data Home Medications Medication Instructions Recorded Confirmed atorvastatin 20 mg tablet 20 mg PO DAILY 05/23/22 07/09/23 lisinopril 20 20 - 25 tab PO DAILY DM 05/23/22 07/09/23 mg-hydrochlorothiazide 25 mg tablet sildenafil 25 mg tablet 25 mg PO DAILY PRN Sexual Activity 05/23/22 07/09/23 tamsulosin 0.4 mg capsule 0.4 mg PO DAILY 05/23/22 07/09/23 verapamil 240 mg tablet,extended 240 mg PO DAILY 05/23/22 07/09/23 release dulaglutide 0.75 mg/0.5 mL 0.75 mg SUBCUT QWEEK 07/09/23 07/09/23 subcutaneous pen injector (Trulicity) gabapentin 300 mg capsule 300 mg PO BEDTIME 07/09/23 07/09/23 hydroxyzine HCl 50 mg tablet 50 mg PO BEDTIME 07/09/23 07/09/23 melatonin 5 mg tablet 5 mg PO BEDTIME PRN 07/09/23 07/09/23 metformin 500 mg tablet 500 mg PO 3XD 07/09/23 07/09/23 oxybutynin chloride 5 mg tablet 5 mg PO BEDTIME 07/09/23 07/09/23 pantoprazole 40 mg tablet,delayed 40 mg PO DAILY 07/09/23 07/09/23 release zolpidem 12.5 mg tablet,extended PO PRN 07/09/23 07/09/23 release,multiphase Allergies Allergy/AdvReac Type Severity Reaction Status Date / Time No Known Drug Allergies Allergy Verified 07/13/23 11:10 Review of Systems Constitutional Constitutional: Reports as per HPI Eyes Eyes: Reports system reviewed and no additional complaints, except as documented Cardiovascular Cardiovascular: Reports system reviewed and no additional complaints, except as documented Respiratory Respiratory: Reports system reviewed and no additional complaints, except as documented Gastrointestinal Gastrointestinal: Reports system reviewed and no additional complaints, except as documented Integumentary/Breasts Skin/Breast: Reports system reviewed and no additional complaints, except as documented Neurologic Neurologic: Reports system reviewed and no additional complaints, except as documented Hematologic/Lymphatic On Anticoagulants: No Patient History Medical History GERD (gastroesophageal reflux disease) Social History household members: spouse Smoking Status: Former smoker alcohol intake: current Smoking Status: Former smoker alcohol intake frequency: 0-2 drinks per day Alcohol type: hard liquor Substance Use Type: does not use Exam Initial Vital Signs Initial Vital Signs: Vital Signs Temperature 97.6 F 07/13/23 11:03 Pulse Rate 85 07/13/23 11:03 Respiratory Rate 16 07/13/23 11:03 Blood Pressure 110/63 07/13/23 11:03 Pulse Oximetry 100 07/13/23 11:03 Oxygen Delivery Method Room Air 07/13/23 11:03 HENNY Head: laceration Face and sinus: normal facial exam Mouth: oral mucosae normal Resp Effort & Inspection: normal respiratory effort Auscultation: clear to auscultation bilaterally Cardio Rate: regular rate Rhythm: regular rhythm GI Inspection: normal to inspection and non-distended Palpation: soft and No tender Back/Spine/Pelvis Cervical Spine: No cervical spinal tenderness Skin Other: 1 cm laceration right side posterior scalp Neuro General: patient alert, patient awake, patient oriented x3 and moves all extremities Cognition: normal cognition Speech: speech normal Extrem General: normal to inspection and capillary refill normal Procedures Laceration Repair Laceration 1: Site: scalp Side (If applicable): right Size (cm): 1 Description: linear Depth: simple, single layer Local Anesthetic: lidocaine 1% and with epi Amount of anesthesia used (mL): 5 Pre-repair: wound explored Skin layer closed with: linn Scores [place] CT Head Rule Age <16 years old: No Patient on blood thinners: No Seizure after injury: No Exclusion: Patient NOT Excluded, Proceed to next steps GCS < 15 at 2 hr post trauma: No Suspected open or depressed skull fracture: No Any sign of basilar skull fracture (hemotympanum, raccoon eyes, Carr's sign, CSF karina-/rhinorrhea): No Two or more episodes of vomiting: No Age greater or equal to 65 years: Yes Retrograde amnesia to the event greater or equal to 30 min: No Dangerous Mechanism (pedestrian vs. mv, occupant ejected from mv, fall from >3 ft or > 5 stairs): No Recommendation: Consider CT. The [place] Head CT Rule cannot rule out need for Imaging. Course Orders Ordered: ED Orders 07/13/23 11:12 CT cervical spine wo con Stat CT head/brain wo con Stat EKG-12 Lead Stat 07/13/23 11:49 Complete Blood Count AUTO DIFF Stat Comprehensive Metabolic Panel Stat Ethanol (ETOH) Stat Discontinued Medications Sodium Chloride (Normal Saline 0.9%) 1,000 mls @ 1,000 mls/hr IV BOLUS ONE Stop: 07/13/23 14:03 Last Infusion: 07/13/23 14:38 Dose: Infused Documented By: Admin: 07/13/23 13:06 Dose: 1,000 mls/hr Documented By: SERGEY Vital Signs Vital signs: Vital Signs - 8 hr 07/13/23 11:03 07/13/23 11:48 07/13/23 11:48 Temperature 97.6 F Pulse Rate 85 84 Respiratory Rate 16 Blood Pressure 110/63 131/76 Pulse Oximetry 100 96 Oxygen Delivery Method Room Air 07/13/23 12:00 07/13/23 12:00 07/13/23 12:30 Temperature Pulse Rate 80 84 Respiratory Rate 13 21 Blood Pressure 97/60 Pulse Oximetry 97 96 Oxygen Delivery Method 07/13/23 12:30 07/13/23 13:00 07/13/23 13:00 Temperature Pulse Rate 80 Respiratory Rate 15 Blood Pressure 102/57 L 85/54 L Pulse Oximetry 96 Oxygen Delivery Method 07/13/23 13:02 07/13/23 13:02 07/13/23 13:15 Temperature Pulse Rate 85 83 Respiratory Rate 22 24 Blood Pressure 82/53 L Pulse Oximetry 96 97 Oxygen Delivery Method 07/13/23 13:15 Temperature Pulse Rate Respiratory Rate Blood Pressure 105/69 Pulse Oximetry Oxygen Delivery Method - Fall Lab Data Attestation: I reviewed the patient's lab results. 07/13/23 11:49 07/13/23 11:49 Labs: Lab Results 07/13/23 Range/Units 11:49 WBC 11.7 H (4.5-11.0) X10^3/uL RBC 4.53 (4.5-5.9) X10^6/uL Hgb 14.8 (13.5-17.5) g/dL Hct 43.6 (41-53) % MCV 96.3 (80-100) fL MCH 32.8 (26-34) PG MCHC 34.0 (30-36) % RDW 13.4 (11.6-14.8) % Plt Count 254 (150-400) X10^3/uL Neut % (Auto) 74.9 (50-75) % Lymph % (Auto) 12.5 L (25-40) % [place] % (Auto) 8.1 (3-14) % Eos % (Auto) 3.6 (2-4) % Baso % (Auto) 0.9 (0-2) % Neut # (Auto) 8800 H (6819-2882) /uL Lymph # (Auto) 1500 (8115-3636) /uL [place] # (Auto) 1000 H (0-900) /uL Eos # (Auto) 400 (0-450) /uL Baso # (Auto) 100 (0-100) /uL Sodium 135 L (137-145) mmol/L Potassium 3.1 L (3.4-5.1) mmol/L Chloride 94 L (98-107) mmol/L Carbon Dioxide 32 (22-32) mmol/L BUN 34 H (9-20) mg/dL Creatinine 3.32 H (0.66-1.25) mg/dL Estimated GFR 20 L (>60) mL/min BUN/Creatinine Ratio 10.2 (6-22) Glucose 181 H (80-110) mg/dL Calcium 9.6 (8.4-10.2) mg/dL Total Bilirubin 1.3 (0.2-1.3) mg/dL AST 36 (17-59) IU/L ALT 33 (<50) IU/L Alkaline Phosphatase 117 (38-126) U/L Total Protein 9.2 H (6.3-8.2) g/dL Albumin 4.7 (3.5-5.0) g/dL Globulin 4.5 H (1.7-4.1) g/dL Albumin/Globulin Ratio 1.0 (1.0-2.8) Ethyl Alcohol < 10 ( - 10) mg/dL Imaging Data CT scan - head: Radiologist's Impression: PROCEDURE: CT HEAD/BRAIN WO CON INDICATIONS: fall and hit head TECHNIQUE: Noncontrast 4.5 mm thick angled axial sections acquired from the foramen magnum to the vertex, with coronal and sagittal reformats. For radiation dose reduction, the following was used: automated exposure control, adjustment of mA and/or kV according to patient size. COMPARISON: [facility], CT, CT ANGIO HEAD AND NECK, 06/14/2022, 17:23. [facility], CT, CT CERVICAL SPINE WO CON, 07/13/2023, 10:26. [facility], CT, CT HEAD/BRAIN WO CON, 06/14/2022, 16:52. FINDINGS: Image quality: Mild streak artifact can be seen through the skull base. CSF spaces: Basal cisterns are patent. No extra-axial fluid collections. The ventricles are symmetric in size and shape. Brain: No intracranial bleeds or masses. There is cerebral volume loss for age, with resultant ventricular and sulcal prominence. There are periventricular and deep white matter chronic small vessel ischemic changes. There is intracranial internal carotid artery atherosclerosis. Skull and face: Minimal soft tissue hematoma can be seen posteriorly and on the right, as on series 2, image 18. No associated calvarial fracture is seen. Calvarium and visualized facial bones appear intact, without suspicious lesions. Sinuses: Visualized sinuses and mastoids are clear. IMPRESSION: Minimal scalp hematoma seen posteriorly and on the right. No displaced calvarial fracture can be seen. No acute intracranial hemorrhage is seen. No acute intracranial process is seen. CT - cervical spine: Radiologist's Impression: PROCEDURE: CT CERVICAL SPINE WO CON INDICATIONS: fall and hit head TECHNIQUE: Noncontrast 3 mm thick sections acquired from the skull base to the T4 level. Sagittal and coronal reformats were then constructed. For radiation dose reduction, the following was used: automated exposure control, adjustment of mA and/or kV according to patient size. COMPARISON: [facility], CT, CT ANGIO HEAD AND NECK, 06/14/2022, 17:23. [facility], CT, CT HEAD/BRAIN WO CON, 07/13/2023, 10:26. FINDINGS: Image quality: This examination is somewhat limited by quantum mottle artifact. Bones: No fractures or dislocations. Visualized superior ribs are intact. There is mild to moderate disc space narrowing seen at C4-C5. Moderate to severe disc space narrowing seen at C5-C6 and C6-C7. Post erected endplate osteophytes are seen, which are worst at the C5-C6 level. Bridging endplate osteophytes can be seen anteriorly at several levels, including from C4 through C7. Multiple levels of facet hypertrophy can be seen. Soft tissues: Prevertebral soft tissues are normal in thickness. No paravertebral hematomas. No apical pneumothoraces. Atherosclerotic calcification is noted. The esophagus is abnormal and is filled with soft tissue material. The esophagus is dilated. IMPRESSION: No displaced fracture or traumatic subluxation. Multiple levels of significant underlying degenerative change can be seen, which are worst at the C5-C6 level. There is abnormal soft tissue material seen within the dilated esophagus. While differential diagnosis includes reflux, concern is raised for underlying esophageal pathology. - Please consider follow-up upper endoscopy for further evaluation. ECG Data Attestation: I personally reviewed and interpreted this ECG as follows: Interpretation: Sinus rhythm First-degree AV block Ventricular rate 84 DC interval 226 Left axis deviation QTC [address] T wave changes Discharge Plan Departure Patient Disposition: Home Clinical Impression: Syncope Instructions: DI for Syncope in Adults (Fainting) Activity Restrictions/Additional Instructions: I do recommend that you stop taking your lisinopril. Take your blood pressure at home like we discussed. If your blood pressure is persistently greater than 140/90 then take a dose of your lisinopril. Contact your primary care doctor for a follow-up to discuss your kidney function. Return to the emergency department for new symptoms. Prescriptions: No Action Trulicity 0.75 mg/0.5 mL pen injector 0.75 mg SUBCUT QWEEK gabapentin 300 mg capsule 300 mg PO BEDTIME hydroxyzine HCl 50 mg tablet 50 mg PO BEDTIME melatonin 5 mg tablet 5 mg PO BEDTIME PRN oxybutynin chloride 5 mg tablet 5 mg PO BEDTIME pantoprazole 40 mg tablet,delayed release (DR/EC) 40 mg PO DAILY zolpidem 12.5 mg tablet,ext release multiphase PO PRN atorvastatin 20 mg tablet 20 mg PO DAILY Patient Comments: TAKE THREE TABLETS BY MOUTH ONE TIME DAILY tamsulosin 0.4 mg capsule 0.4 mg PO DAILY Patient Comments: Take 1 capsule by mouth every evening verapamil 240 mg tablet extended release 240 mg PO DAILY Patient Comments: TAKE ONE TABLET BY MOUTH ONE TIME DAILY lisinopril-hydrochlorothiazide 20-25 mg tablet 20 - 25 tab PO DAILY Patient Comments: TAKE ONE TABLET BY MOUTH ONE TIME DAILY sildenafil 25 mg Tablet 25 mg PO DAILY PRN (Reason: Sexual Activity) metformin 500 mg tablet 500 mg PO 3XD Patient Comments: TAKE TWO TABLETS BY MOUTH EVERY MORNING AND TAKE ONE TABLET BY MOUTH EVERY EVENING Referrals: Alden Boucher MD [Primary Care Provider] - Stand Alone Forms: Patient Portal/API
[2023-07-13 11:58] LABS: Add Manual Diff / Slide Review NO; Basophils Absolute Auto 100 /uL (0-100); Basophils Percent Auto 0.9 % (0-2); Eosinophils Absolute Auto 400 /uL (0-450); Eosinophils Percent Auto 3.6 % (2-4); Hematocrit 43.6 % (41-53); Hemoglobin 14.8 g/dL (13.5-17.5); Lymphocytes Absolute Auto 1500 /uL (1100-4500); Lymphocytes Percent Auto 12.5 % (25-40); Mean Corpuscular Hemoglobin 32.8 PG (26-34); Mean Corpuscular Volume 96.3 fL (80-100); Monocytes Absolute Auto 1000 /uL (0-900); Monocytes Percent Auto 8.1 % (3-14); Neutrophils Absolute Auto 8800 /uL (1500-7000); Neutrophils Percent Auto 74.9 % (50-75); Platelet Count 254 X10^3/uL (150-400); Red Blood Cell Count 4.53 X10^6/uL (4.5-5.9); Red Cell Distribution Width 13.4 % (11.6-14.8); White Blood Cell Count 11.7 X10^3/uL (4.5-11.0)
[2023-07-13 12:42] LABS: Alanine Aminotransferase 33 IU/L (<50); Albumin 4.7 g/dL (3.5-5.0); Alkaline Phosphatase 117 U/L (38-126); Aspartate Aminotransferase 36 IU/L (17-59); BUN Creatinine Ratio 10.2 (6-22); Bilirubin Total 1.3 mg/dL (0.2-1.3); Blood Urea Nitrogen 34 mg/dL (9-20); Calcium 9.6 mg/dL (8.4-10.2); Carbon Dioxide 32 mmol/L (22-32); Chloride 94 mmol/L (98-107); Estimated Glomerular Filt Rate 20 mL/min (>60); Ethanol (ETOH) < 10 mg/dL; Globulin 4.5 g/dL (1.7-4.1); Glucose 181 mg/dL (80-110); HEMOLYSIS < 15 (0-50); Potassium 3.1 mmol/L (3.4-5.1); Sodium 135 mmol/L (137-145); Total Protein 9.2 g/dL (6.3-8.2)
[2023-07-13] MEDS: SODIUM CHLORIDE 0.9% 1,000 ML 1000 ML IV (13:06)
--- NOTE | 2023-07-13 13:22 | PC.NURSE ---
While patient was sleeping, blood pressure dropped and had been trending down. Patient easily awoken from sleep and denies symptoms of hypotension. Alerted provider to hypotension, new orders placed and initiated.
== END 2023-07-13 15:00 | disposition home or self-care (01) ==
PROVIDERS: Emergency Provider Emergency Medicine; PCP Family Medicine
DX: R55 Syncope and collapse (principal); S09.90XA Unspecified injury of head, initial encounter; M48.02 Spinal stenosis, cervical region; R07.9 Chest pain, unspecified
CPT/HCPCS: 36415; 70450; 72125; 80053; 80320; 85025; 93005; 93010; 96360; 96361; 99284

== ENCOUNTER 2023-07-22 09:07 | Day surgery (SDC) | payer MEDICARE, OTHER, SELFPAY ==
[2023-07-22 09:46] VITALS: BP 153/89; PULSE 77; RESP 17; TEMP 36.6; O2SAT 96
[2023-07-22] MEDS: LACTATED RINGERS 1,000 ML 42 ML IV (09:54)
--- NOTE | 2023-07-22 10:29 | PM.PREOP ---
Pre-operative Note Interval Note History & Physical reviewed/Exam performed by Physician: Yes Changes to H&P: No H&P completed within 30 days and has changed as indicated here:: Overview of the procedure described. Procedural risks including hemorrhage, intestinal injury discussed. Questions have been answered he is in agreement with his plan provides his written and verbal consent to proceed.
[2023-07-22 10:56] VITALS: BP 132/89; PULSE 67; RESP 12; TEMP 36.2; O2SAT 97
[2023-07-22 11:01] VITALS: BP 125/86; PULSE 66; RESP 21; TEMP 36.2; O2SAT 94
[2023-07-22 11:07] VITALS: BP 115/82; PULSE 62; RESP 14; TEMP 36.4; O2SAT 95
[2023-07-22 11:14] VITALS: BP 110/81; PULSE 65; RESP 16; TEMP 36.3; O2SAT 96
--- NOTE | 2023-07-22 11:34 | PM.OP.EGD ---
Operative Date/Time/Diagnoses Date of procedure: 07/22/23 Procedure & Clinicians Study performed: NOTE EGD WAS NOT PERFORMED TODAY, CANCELLED PER ANESTHESIA Procedure Notes Procedure in detail: NOTE EGD WAS NOT PERFORMED TODAY, CANCELLED PER ANESTHESIA Following IVP of 80mg Propofol, pt clear/foamy output from nose and mouth. Pt was lying on left side with head at 45 degrees at the time. Patient was immediately suctioned and supplemental oxygen at 100% fiO2 was provided. EGD was not performed. Despite holding Trulicity for 9 days pt still presented with residual stomach contents. Advised pt hold Trulicity 2 weeks when arriving for rescheduled EGD in the future. Also recommend GA with RSI when pt returns as he has been having vomiting after meals at home even in the seated, head up position. Impression: Patient SaO2 >95% on RA at discharge. Clear lung sounds throughout. Post-procedure Plan for aftercare: Pt provided with and instructed on use of incentive spirometer. Advised to utilize several times every hour while awake at home today.
== END 2023-07-22 11:32 | disposition home or self-care (01) ==
PROVIDERS: Surgery; PCP Family Medicine; Referring Provider Surgery; Visit Provider Surgery
PROC: 0DJ08ZZ Inspection of Upper Intestinal Tract, Via Natural or Artificial Opening Endoscopic (ICD-10-PCS; CPT 43235; principal; 2023-07-22 10:15)
DX: K21.9 Gastro-esophageal reflux disease without esophagitis (principal); Z53.09 Procedure and treatment not carried out because of other contraindication
CPT/HCPCS: 43235; J2704

== ENCOUNTER 2023-08-01 12:51 | Day surgery (SDC) | payer MEDICARE, OTHER, SELFPAY ==
--- NOTE | 2023-08-01 | DI.CT.S_ITS ---
PROCEDURE: CT SOFT TISSUE NECK W CON INDICATIONS: failed endoscopy, emesis TECHNIQUE: After the administration of intravenous contrast, 3.0 mm axial sections acquired from the sella to the aortic arch. Additional oblique axial 3.0 mm sections acquired through the pharynx. 3 mm thick coronal and sagittal reformats were generated. For radiation dose reduction, the following was used: automated exposure control. COMPARISON: [facility], CT, CT CERVICAL SPINE WO CON, 07/13/2023, 10:26. FINDINGS: Image quality: Excellent. Lymph nodes: No enlarged lymph nodes seen throughout the neck. Vessels: Visualized vasculature appears patent. Neck spaces: The oropharynx, nasopharynx, and pharynx demonstrate no mucosal lesions. The vocal cords, false vocal cords, pyriform sinuses, epiglottis, vallecula, and tongue base all appear normal. Extramucosal spaces appear unremarkable. Glands: The parotid and submandibular glands appear normal. Thyroid gland appears normal for age. Miscellaneous: Visualized brain and orbits appear normal. Lung apices appear clear. Superficial soft tissues appear normal except for prominent esophageal dilatation containing an air-fluid level better seen by CT scanning also performed today that includes the chest abdomen and pelvis. Specifically the midesophageal mass seen by that study is not included on the current examination.. Bones: No suspicious bony lesions. Visualized sinuses and mastoids appear unremarkable. IMPRESSION: No adenopathy or other evidence of metastatic disease related to the relatively large and obstructive mid esophageal mass lesion discussed during chest portion of chest abdomen pelvis CT scanning earlier today. Prominent esophageal dilatation containing an air-fluid level within the portion of the esophagus included on this study. Dictated by: Dago Paredes M.D. on 08/01/2023 at 16:16 Approved by: Dago Paredes M.D. on 08/01/2023 at 16:19
--- NOTE | 2023-08-01 | DI.CT.S_ITS ---
PROCEDURE: CT CHEST ABD PEL W CON INDICATIONS: Difficulty swallowing, emesis TECHNIQUE: After the administration of intravenous contrast, 5 mm thick sections acquired from the lung apices to the symphysis. 5 mm coronal and sagittal reformats were performed, with additional 7 mm MIP reformats through the lungs. For radiation dose reduction, the following was used: automated exposure control, adjustment of mA and/or kV according to patient size. COMPARISON: [facility], CT, CT CERVICAL SPINE WO CON, 07/13/2023, 10:26. FINDINGS: Image quality: Excellent. CHEST: Lower Neck: No enlarged lymph nodes. Thyroid: No thyroid nodules which require sonographic follow up, per consensus guidelines. Axillae: No enlarged lymph nodes. Chest Wall: Unremarkable. Lungs and Pleura: No pneumothorax or pleural effusions. No consolidation or suspicious nodules. Heart: Heart size is normal. No pericardial effusion. Thoracic Vessels: The aorta and pulmonary arteries demonstrate normal size. Mediastinum and Leticia: No enlarged lymph nodes. Esophagus: As was seen during CT scanning of the neck area recently prominent dilatation and fluid retention within the upper esophagus is present. This contrast-enhanced study allows visualization of a mid esophageal mass, located at and just below the level of the jazmine within the esophagus, comprised of a soft tissue mass lesion measuring up to 2.7 cm AP, 4.7 cm transverse and up to approximately 6.1 cm craniocaudad. Below this mass the distal esophagus is not distended or shows evidence of a more distal mass lesion at the gastric cardia. ABDOMEN: Liver: No solid mass. Gallbladder: No radiopaque gallstones or wall thickening. Biliary ducts: No biliary dilation. Pancreas: No ductal dilation. Spleen: Size is within normal limits. Adrenal Glands: No adrenal nodules. Kidneys and Ureters: No hydronephrosis. No solid mass. No complex renal cystic lesion which requires follow up. Stomach and Bowel: Normal colonic caliber, without significant wall thickening. Peritoneum: No abnormal intraperitoneal fluid. No free air. Ventral Wall: No significant ventral hernia. Abdominal Nodes: No retroperitoneal or mesenteric adenopathy by size criteria. Vessels: Aorta and inferior vena cava are normal in size. PELVIS: Pelvic Organs: Unremarkable. Bladder: No bladder wall thickening, accounting for underdistention. Pelvic Nodes: No enlarged lymph nodes. Miscellaneous: No inguinal hernias are seen. Bones: No aggressive osseous abnormality. IMPRESSION: Isolated finding of a midesophageal mass lesion that appears largely obstructive, with secondary dilatation and retention of fluid within the esophagus above this mass. Below the mass within the more distal esophagus no mass or dilatation is present. Currently no evidence of metastatic disease. Dictated by: Dago Paredes M.D. on 08/01/2023 at 16:09 Approved by: Dago Paredes M.D. on 08/01/2023 at 16:16
[2023-08-01 13:11] VITALS: BP 156/105; PULSE 81; RESP 20; TEMP 36.3; O2SAT 97
[2023-08-01 13:19] VITALS: BMI 30.9
[2023-08-01] MEDS: LACTATED RINGERS 1,000 ML 150 ML IV (13:26)
--- NOTE | 2023-08-01 13:35 | PM.PREOP ---
Pre-operative Note Interval Note History & Physical reviewed/Exam performed by Physician: Yes Changes to H&P: No
--- NOTE | 2023-08-01 13:52 | PM.OP.EGD ---
Operative Date/Time/Diagnoses Date of procedure: 08/01/23 Time of procedure: 13:52 Pre-op diagnosis: GERD Post-op diagnosis: other (gastroparesis) Procedure & Clinicians Study performed: Aborted esophagogastroduodenoscopy Indications: 68-year-old man with reflux and frequent emesis here for diagnostic EGD. Surgeon: Bismark Fulton Procedure Notes Procedure in detail: Patient was brought to the operating room. Positioned supine on the stretcher. Anesthesia was induced. The endoscope was inserted into the mouth and advanced into the esophagus. There was a large volume of gastric content and at this point patient began to have spontaneous emesis. The procedure was canceled. Specimen(s): none sent Impression: Aborted EGD Post-procedure Plan for aftercare: CT abdomen Disposition: same day surgery
[2023-08-01 13:58] VITALS: BP 119/71; PULSE 69; RESP 13; TEMP 36.7; O2SAT 94
[2023-08-01 14:02] VITALS: BP 117/78; PULSE 63; RESP 14; O2SAT 93
[2023-08-01 14:08] VITALS: BP 142/83; PULSE 60; RESP 13; O2SAT 93
[2023-08-01 14:55] LABS: BUN Creatinine Ratio 10.7 (6-22); Blood Urea Nitrogen 16 mg/dL (9-20); Calcium 9.4 mg/dL (8.4-10.2); Carbon Dioxide 36 mmol/L (22-32); Chloride 98 mmol/L (98-107); Estimated Glomerular Filt Rate 51 mL/min (>60); Glucose 140 mg/dL (80-110); HEMOLYSIS < 15 (0-50); Sodium 135 mmol/L (137-145)
--- NOTE | 2023-08-01 15:07 | SUR.PHASEII ---
Patient to CT scan via wheelchair.
[2023-08-01 15:29] VITALS: BP 148/73; PULSE 71; RESP 16; TEMP 36.7; O2SAT 98
== END 2023-08-01 15:31 | disposition home or self-care (01) ==
PROVIDERS: PCP Family Medicine; Referring Provider Surgery; Visit Provider Surgery
PROC: 0DJ08ZZ Inspection of Upper Intestinal Tract, Via Natural or Artificial Opening Endoscopic (ICD-10-PCS; CPT 43235; principal; 2023-08-01 13:45)
DX: K21.9 Gastro-esophageal reflux disease without esophagitis (principal); K31.84 Gastroparesis; K91.0 Vomiting following gastrointestinal surgery; Z53.09 Procedure and treatment not carried out because of other contraindication; K22.89 Other specified disease of esophagus
CPT/HCPCS: 43235; 70491; 71260; 74177; 80048; J2704; Q9967

== ENCOUNTER → 2023-09-02 11:43 | Outpatient (CLI) | payer MEDICARE, OTHER, SELFPAY ==
[2023-09-02 13:10] LABS: BUN Creatinine Ratio 25.3 (6-22); Blood Urea Nitrogen 19 mg/dL (9-20); Calcium 8.6 mg/dL (8.4-10.2); Carbon Dioxide 34 mmol/L (22-32); Chloride 97 mmol/L (98-107); Estimated Glomerular Filt Rate > 60 mL/min (>60); Glucose 169 mg/dL (80-110); HEMOLYSIS < 15 (0-50); Phosphorous 3.3 mg/dL (2.3-3.7); Potassium 3.6 mmol/L (3.4-5.1); Sodium 135 mmol/L (137-145)
== END ==
PROVIDERS: PCP Family Medicine; Referring Provider Student in an Organized Health Care Education/Training Program; Visit Provider Student in an Organized Health Care Education/Training Program
DX: C15.9 Malignant neoplasm of esophagus, unspecified (principal)
CPT/HCPCS: 36415; 80048; 84100

== ENCOUNTER → 2023-09-03 11:15 | Outpatient (CLI) | payer MEDICARE, OTHER, SELFPAY ==
[2023-09-03 13:14] LABS: BUN Creatinine Ratio 19.8 (6-22); Blood Urea Nitrogen 18 mg/dL (9-20); Carbon Dioxide 39 mmol/L (22-32); Chloride 95 mmol/L (98-107); Estimated Glomerular Filt Rate > 60 mL/min (>60); Glucose 146 mg/dL (80-110); HEMOLYSIS < 15 (0-50); Phosphorous 3.5 mg/dL (2.3-3.7); Potassium 3.8 mmol/L (3.4-5.1); Sodium 136 mmol/L (137-145)
== END ==
PROVIDERS: PCP Family Medicine; Referring Provider Student in an Organized Health Care Education/Training Program; Visit Provider Student in an Organized Health Care Education/Training Program
DX: C15.9 Malignant neoplasm of esophagus, unspecified (principal)
CPT/HCPCS: 36415; 80048; 84100

== ENCOUNTER → 2023-11-12 10:09 | Outpatient (CLI) | payer MEDICARE, OTHER, SELFPAY ==
--- NOTE | 2023-11-12 | DI.RAD.S_ITS ---
PROCEDURE: XR CHEST 2V INDICATIONS: history of mid-esophageal cancer, new cough TECHNIQUE: 2 views of the chest were acquired. COMPARISON: [facility], CT, CT CHEST ABDOMEN WITH CONTRAST, 09/12/2023, 12:10. FINDINGS: Surgical changes and devices: Right chest Port-A-Cath is seen with catheter tip projecting over the superior vena cava. Lungs and pleura: Lungs are clear. No pleural effusions or pneumothorax. Mediastinum: Mediastinal contours are normal. Heart size is normal. Bones and chest wall: No suspicious bony abnormalities. Soft tissues appear unremarkable. IMPRESSION: No acute cardiopulmonary abnormality is seen. Approved by: Joshua Albrecht M.D. on 11/12/2023 at 14:02
== END ==
LOC: RAD 10:10
PROVIDERS: PCP Family Medicine; Referring Provider Radiology Radiation Oncology; Visit Provider Radiology Radiation Oncology
DX: C15.4 Malignant neoplasm of middle third of esophagus (principal)
CPT/HCPCS: 71046

== ENCOUNTER → 2024-03-08 11:15 | Outpatient (CLI) | payer MEDICARE, OTHER, SELFPAY ==
--- NOTE | 2024-03-08 11:17 | DI.CT.S_ITS ---
PROCEDURE: CT CHEST W CON INDICATIONS: PRIMARY SQUAMOUS CELL CARCINOMA TECHNIQUE: After the administration of intravenous contrast, 5 mm thick sections acquired from the pulmonary apices to the posterior costophrenic angles. 1 mm axial lung, 5 mm thick coronal and sagittal reformats and 7 mm axial MIP were acquired. For radiation dose reduction, the following was used: automated exposure control, adjustment of mA and/or kV according to patient size. COMPARISON: [facility], CT, CT CHEST ABDOMEN WITH CONTRAST, 09/12/2023, 12:10. FINDINGS: Image quality: Diagnostic. Lower Neck: No enlarged lymph nodes. Thyroid: No thyroid nodules which require sonographic follow up, per consensus guidelines. Axillae: No enlarged lymph nodes. Chest Wall: Unremarkable. Bones: Unremarkable. Lungs and Pleura: No pneumothorax or pleural effusions. Perihilar consolidation with superimposed centrilobular and tree-in-bud nodules affecting all lobes of the lungs. Focus of anterior ground-glass in the left upper lobe. Small pleural effusions, loculated on the right with a thickened pleura, and layering on the left. Heart: Heart size is enlarged, with severe LAD calcifications. No pericardial effusion. Thoracic Vessels: The aorta and pulmonary arteries demonstrate normal size. Mediastinum and Leticia: No enlarged lymph nodes. Esophagus: Esophagectomy with esophageal pull-through. The gastric pull-through is patulous, containing debris. Upper Abdomen: Small volume ascites. Scattered subcentimeter hypoattenuating lesions, too small to characterize by CT but probably small cysts. IMPRESSION: Perihilar consolidation in all lung lobes. Findings are concerning for atypical infection or large volume aspiration, given the superimposed tree-in-bud nodules. Esophagectomy with gastric pull-through. The gastric pull-through is dilated, containing debris. This may place this patient at risk for aspiration, as above. Small, loculated right-sided pleural effusion with pleural thickening. A process such as empyema is a consideration, but less likely given history of complex right pleural effusion requiring drains. Small layering left pleural effusion. Small volume ascites. Dictated by: Samir Collisn M.D. on 03/08/2024 at 12:57 Approved by: Samir Collins M.D. on 03/08/2024 at 13:14
[2024-03-08 11:47] LABS: Estimated Glomerular Filt Rate > 60 mL/min (>60)
== END ==
PROVIDERS: Radiology Diagnostic Radiology; PCP Family Medicine; Referring Provider Radiology Radiation Oncology; Visit Provider Radiology Radiation Oncology
DX: C15.4 Malignant neoplasm of middle third of esophagus (principal); R05.8 Other specified cough; J90 Pleural effusion, not elsewhere classified; R18.8 Other ascites; Z90.49 Acquired absence of other specified parts of digestive tract
CPT/HCPCS: 36415; 71260; 82565; Q9967